=== PATIENT | male | born 1955 | race African-American/Black ===

== ENCOUNTER 2019-04-12 08:48 | Emergency (ER) | payer OTHER ==
--- NOTE | 2019-04-12 09:40 | ER ---
Nurse's Notes [facility] Name: Mainor Bell Age: 63 yrs Sex: Male : 1955 Arrival Date: 04/12/2019 Time: 08:53 Bed 20 Private MD: Diagnosis: Abscess of external ear-lobe;Type 2 diabetes mellitus Presentation: 04/12 09:01 Presenting complaint: Patient states: pain and swelling to lobe of L ear that began two ss weeks ago. Transition of care: patient was not received from another setting of care. Onset of symptoms was March 2019. Risk Assessment: Do you want to hurt yourself or someone else? Patient reports no desire to harm self or others. Initial Sepsis Screen: Does the patient meet any 2 criteria? No. Patient's initial sepsis screen is negative. Does the patient have a suspected source of infection? No. Patient's initial sepsis screen is negative. Care prior to arrival: None. 09:01 Method Of Arrival: Ambulatory ss 09:01 Acuity: JO 5 ss Historical: - Allergies: 09:01 No Known Allergies; ss - PMHx: 09:57 Diabetes - NIDDM; jl7 - Immunization history:: Adult Immunizations up to date. - Social history:: Smoking status: Patient uses tobacco products, smokes one-half pack cigarettes per day. - Ebola Screening: : Patient denies exposure to infectious person Patient denies travel to an Ebola-affected area in the 21 days before illness onset. - Family history:: not pertinent. Screenin:02 Abuse screen: Denies threats or abuse. Denies injuries from another. Nutritional ss screening: No deficits noted. Tuberculosis screening: Never had TB. Fall Risk None identified. Assessment: 09:02 General: Appears in no apparent distress. comfortable, Behavior is calm, cooperative. ss Pain: Complains of pain in left ear lobe Pain currently is 7 out of 10 on a pain scale. Quality of pain is described as tender, Pain began 2 weeks ago Is continuous. Neuro: Level of Consciousness is awake, alert, obeys commands, Oriented to person, place, time, situation. Cardiovascular: Capillary refill < 3 seconds is brisk in bilateral fingers. Respiratory: Airway is patent Respiratory effort is even, unlabored, Respiratory pattern is regular, symmetrical. GI: No signs and/or symptoms were reported involving the gastrointestinal system. EENT: Nares are clear Throat is clear. Derm: Skin is pink, warm \T\ dry. normal. Musculoskeletal: Range of motion: intact in all extremities, Swelling mild swelling and redness noted to lobe of L ear. Vital Signs: 08:59 BP 190 / 89; Pulse 81; Resp 16; Temp 97.4(O); Pulse Ox 99% on R/A; Weight 116.57 kg; Height 6 ft. 5 in. (195.58 cm); Pain 7/10; 09:57 BP 167 / 83; Pulse 77; Resp 16 S; Pulse Ox 98% on R/A; jl7 08:59 Body Mass Index 30.48 (116.57 kg, 195.58 cm) ED Course: 08:53 Patient arrived in ED. mr 08:55 Daren Palma MD is Attending Physician. [facility] 09:01 Arm band placed on left wrist. 09:02 Triage completed. 09:02 Patient has correct armband on for positive identification. Bed in low position. Call light in reach. 09:18 Bryan Sims RN is Primary Nurse. jl7 09:39 Sandee Sneed MD is Referral Physician. [facility] 09:56 No provider procedures requiring assistance completed. Patient did not have IV access jl7 during this emergency room visit. Administered Medications: 09:50 Drug: Doxycycline 200 mg Route: PO; jl7 09:58 Follow up: Response: Medication administered at discharge. jl7 09:50 Drug: Bactrim (160 mg-800 mg (DS) 1 tablet Route: PO; jl7 09:58 Follow up: Response: Medication administered at discharge. jl7 09:57 Drug: Bactroban Ointment 2 % 1 application Route: Topical; Site: wound; jl7 09:58 Follow up: Response: Medication administered at discharge. jl7 Outcome: 09:40 Discharge ordered by . shawn 09:56 Discharged to home ambulatory. jl7 09:56 Condition: stable 09:56 Discharge instructions given to patient, Instructed on discharge instructions, follow up and referral plans. medication usage, Demonstrated understanding of instructions, follow-up care, medications, Prescriptions given X 4. 09:59 Patient left the ED. jl7 Signatures: Daren Palma MD MD cha Rivera, Mary mr Smirch, Shelby, RN RN Bryan Sims RN RN jl7
--- NOTE | 2019-04-12 09:40 | EDPHYS ---
Physician Documentation [facility] Name: Mainor Bell Age: 63 yrs Sex: Male : 1955 Arrival Date: 04/12/2019 Time: 08:53 Bed 20 Private MD: REMI Physician Daren Palma HPI: 04/12 09:35 This 63 yrs old Black Male presents to ER via Ambulatory with complaints of Ear Pain. shawn 09:35 The patient presents with swelling, tenderness. The complaints affect the left ear. shawn Onset: The symptoms/episode began/occurred 3 day(s) ago. Modifying factors: The symptoms are alleviated by nothing, the symptoms are aggravated by nothing. Associated signs and symptoms: The patient has no apparent associated signs or symptoms. Historical: - Allergies: 09:01 No Known Allergies; ss - PMHx: 09:57 Diabetes - NIDDM; jl7 - Immunization history:: Adult Immunizations up to date. - Social history:: Smoking status: Patient uses tobacco products, smokes one-half pack cigarettes per day. - Ebola Screening: : Patient denies exposure to infectious person Patient denies travel to an Ebola-affected area in the 21 days before illness onset. - Family history:: not pertinent. ROS: 09:35 Constitutional: Negative for fever, chills, and weight loss, Eyes: Negative for injury, shawn pain, redness, and discharge, Neck: Negative for injury, pain, and swelling, Cardiovascular: Negative for chest pain, palpitations, and edema, Respiratory: Negative for shortness of breath, cough, wheezing, and pleuritic chest pain, Abdomen/GI: Negative for abdominal pain, nausea, vomiting, diarrhea, and constipation, Back: Negative for injury and pain, : Negative for injury, bleeding, discharge, and swelling, MS/Extremity: Negative for injury and deformity, Skin: Negative for injury, rash, and discoloration, Neuro: Negative for headache, weakness, numbness, tingling, and seizure, Psych: Negative for depression, anxiety, suicide ideation, homicidal ideation, and hallucinations, Allergy/Immunology: Negative for hives, rash, and allergies, Endocrine: Negative for neck swelling, polydipsia, polyuria, polyphagia, and marked weight changes, Hematologic/Lymphatic: Negative for swollen nodes, abnormal bleeding, and unusual bruising. 09:35 ENT: Positive for ear pain. Exam: 09:35 Constitutional: This is a well developed, well nourished patient who is awake, alert, shawn and in no acute distress. Head/Face: Normocephalic, atraumatic. Eyes: Pupils equal round and reactive to light, extra-ocular motions intact. Lids and lashes normal. Conjunctiva and sclera are non-icteric and not injected. Cornea within normal limits. Periorbital areas with no swelling, redness, or edema. Neck: Trachea midline, no thyromegaly or masses palpated, and no cervical lymphadenopathy. Supple, full range of motion without nuchal rigidity, or vertebral point tenderness. No Meningismus. Chest/axilla: Normal chest wall appearance and motion. Nontender with no deformity. No lesions are appreciated. Cardiovascular: Regular rate and rhythm with a normal S1 and S2. No gallops, murmurs, or rubs. Normal PMI, no JVD. No pulse deficits. Respiratory: Lungs have equal breath sounds bilaterally, clear to auscultation and percussion. No rales, rhonchi or wheezes noted. No increased work of breathing, no retractions or nasal flaring. Abdomen/GI: Soft, non-tender, with normal bowel sounds. No distension or tympany. No guarding or rebound. No evidence of tenderness throughout. Back: No spinal tenderness. No costovertebral tenderness. Full range of motion. MS/ Extremity: Pulses equal, no cyanosis. Neurovascular intact. Full, normal range of motion. Neuro: Awake and alert, GCS 15, oriented to person, place, time, and situation. Cranial nerves II-XII grossly intact. Motor strength 5/5 in all extremities. Sensory grossly intact. Cerebellar exam normal. Normal gait. Psych: Awake, alert, with orientation to person, place and time. Behavior, mood, and affect are within normal limits. 09:35 ENT: External ear(s): abscess, that is small, cellulitis. Vital Signs: 08:59 BP 190 / 89; Pulse 81; Resp 16; Temp 97.4(O); Pulse Ox 99% on R/A; Weight 116.57 kg; ss Height 6 ft. 5 in. (195.58 cm); Pain 7/10; 09:57 BP 167 / 83; Pulse 77; Resp 16 S; Pulse Ox 98% on R/A; jl 08:59 Body Mass Index 30.48 (116.57 kg, 195.58 cm) ss MDM: 08:55 Patient medically screened. [facility] 09:35 Data reviewed: vital signs, nurses notes, lab test result(s). [facility] 04/12 09:44 Order name: GUILLERMINA barahona 04/12 09:35 Order name: Blood Glucose Level; Complete Time: 09:42 [facility] Administered Medications: 09:50 Drug: Doxycycline 200 mg Route: PO; [facility] 09:58 Follow up: Response: Medication administered at discharge. 09:50 Drug: Bactrim (160 mg-800 mg (DS) 1 tablet Route: PO; 09:58 Follow up: Response: Medication administered at discharge. 09:57 Drug: Bactroban Ointment 2 % 1 application Route: Topical; Site: wound; 09:58 Follow up: Response: Medication administered at discharge. 7 Disposition: 04/12/19 09:40 Discharged to Home. Impression: Abscess of external ear - lobe, Type 2 diabetes mellitus. - Condition is Stable. - Discharge Instructions: Skin Abscess, Type 2 Diabetes Mellitus, Diagnosis, Adult, Skin Abscess, [id number], Type 2 Diabetes Mellitus, Diagnosis, Adult, [id number]. - Prescriptions for Bactroban 2 % Topical Ointment - Apply to affected area 1 application by TOPICAL route every 12 hours; 30 gram. Tylenol- Codeine #3 300-30 mg Oral Tablet - take 2 tablets by ORAL route every 6 hours As needed; 20 tablet. Doxycycline Hyclate 100 mg Oral Tablet - take 1 tablet by ORAL route every 12 hours; 20 tablet. Bactrim DS 800- 160 mg Oral Tablet - take 1 tablet by ORAL route every 12 hours for 10 days; 20 tablet. - Medication Reconciliation Form, Thank You Letter, Antibiotic Education, Prescription Opioid Use form. - Follow up: Private Physician; When: 2 - 3 days; Reason: Recheck today's complaints, Continuance of care, Re-evaluation by your physician. Follow up: Sandee Sneed MD; When: 2 - 3 days; Reason: Recheck today's complaints, Continuance of care, Re-evaluation by your physician. - Problem is new. - Symptoms have improved. Signatures: Dispatcher [employer] Daren Sarmiento MD MD cha Smirch, Carolin, RN RN ss Bryan Sims RN RN jl7 Corrections: (The following items were deleted from the chart) 09:59 09:40 04/12/2019 09:40 Discharged to Home. Impression: Abscess of external ear - lobe; jl7 Type 2 diabetes mellitus. Condition is Stable. Forms are Medication Reconciliation Form, Thank You Letter, Antibiotic Education, Prescription Opioid Use. Follow up: Private Physician; When: 2 - 3 days; Reason: Recheck today's complaints, Continuance of care, Re-evaluation by your physician. Follow up: Sandee Sneed; When: 2 - 3 days; Reason: Recheck today's complaints, Continuance of care, Re-evaluation by your physician. Problem is new. Symptoms have improved. shawn
[2019-04-12] MEDS ORDERED: SMZ./TMP. 800/160 MG TABLET ONE (09:43)
[2019-04-12] MEDS ORDERED: DOXYCYCLINE 100 MG CAP PO ONE (09:44)
[2019-04-12] MEDS ORDERED: MUPIROCIN 2% OINT 22GM TUBE TOP ONE (09:44)
[2019-04-12 10:03] VITALS: TEMP 97.4
[2019-04-12 10:04] VITALS: BP 167/83; O2SAT 98
== END 2019-04-12 09:59 | disposition home or self-care (01) ==
LOC: ER 08:48
DX: H60.02 Abscess of left external ear (principal); E11.9 Type 2 diabetes mellitus without complications; F17.210 Nicotine dependence, cigarettes, uncomplicated
CPT/HCPCS: 36415; 82962; 99283

== ENCOUNTER 2019-05-11 07:12 | Emergency (ER) | payer OTHER ==
[2019-05-11] MEDS ORDERED: LIDOCAINE 1% MPF 5 ML VIAL ONE (07:30)
--- NOTE | 2019-05-11 07:54 | EDPHYS ---
Physician Documentation [facility] Name: Mainor Bell Age: 64 yrs Sex: Male : 1955 Arrival Date: 05/11/2019 Time: 07:15 Bed 13 Private MD: ED Physician Conrado Garcia HPI: 05/11 07:24 This 64 yrs old Black Male presents to ER via Unassigned with complaints of Abscess. rn 07:24 The patient presents with an abscess of the right groin. Description: The affected area rn is small, localized, erythematous, fluctuant. Onset: The symptoms/episode began/occurred 2 day(s) ago. Possible cause(s): unknown. Modifying factors: the symptoms are alleviated by nothing, the symptoms are aggravated by walking, touching. Severity of symptoms: At their worst the symptoms were mild, in the emergency department the symptoms are unchanged. The patient has experienced similar episodes in the past. Reports chronic skin infections, no fever, reports had abx for other abscess a few weeks ago, bumps popped up in right groin, has required multiple incision and drainage in past. Reports pain with walking and touching area. No trauma. . Historical: - Allergies: 07:25 No Known Allergies; hb - PMHx: 07:25 Diabetes - NIDDM; hb - Immunization history:: Adult Immunizations up to date. - Social history:: Smoking status: Patient uses tobacco products, denies chronic smoking, but will smoke occasionally. - Ebola Screening: : No symptoms or risks identified at this time. - Family history:: not pertinent. - Hospitalizations: : No recent hospitalization is reported. ROS: 07:24 Constitutional: Negative for fever, chills, and weight loss, MS/Extremity: Negative for rn injury and deformity, Skin: + swollen area right groin Exam: 07:24 Constitutional: This is a well developed, well nourished patient who is awake, alert, rn and in no acute distress. Ambulatory to room without assistance. Skin: warm, dry, right groin with multiple subcentimeter pustules, and a single larger approx 2cm diameter area of fluctuance and tenderness. No lesions on penis or scrotum. Vital Signs: 07:25 BP 194 / 90; Pulse 84; Resp 16; Temp 97.4; Pulse Ox 100% ; Weight 115.67 kg; Height 6 hb ft. 5 in. (195.58 cm); Pain 10/10; 08:20 BP 176 / 87; Pulse 89; Resp 16; Temp 97.5; Pulse Ox 100% ; bp 07:25 Body Mass Index 30.24 (115.67 kg, 195.58 cm) hb Procedures: 07:51 I \T\ D: Incision and drainage was performed for an abscess of the right groin Prepped rn with Betadine, Anesthetized with 3 ml's 1% Lidocaine. Incised with #11 blade. Drained small amount purulent fluid. serosanguinous fluid. Dressing: sterile 4x4 gauze, the patient tolerated the procedure well, Cut 2 small abscesses, small amount of purulence, fluctuance gone, improved pain, too small to pack. . MDM: 07:20 Patient medically screened. rn 07:51 Differential diagnosis: abscess, hidradenitis suppurativa . Data reviewed: vital signs, rn nurses notes, and as a result, I will discharge patient. Counseling: I had a detailed discussion with the patient and/or guardian regarding: the historical points, exam findings, and any diagnostic results supporting the discharge/admit diagnosis, the need for outpatient follow up, to return to the emergency department if symptoms worsen or persist or if there are any questions or concerns that arise at home. Response to treatment: the patient's symptoms have mildly improved after treatment, and as a result, I will discharge patient. Special discussion: I discussed with the patient/guardian in detail that at this point there is no indication for admission to the hospital. It is understood, however, that if the symptoms persist or worsen the patient needs to return immediately for re-evaluation. 05/11 07:24 Order name: Incision \T\ Drainage Setup; Complete Time: 07:33 rn Administered Medications: 07:33 Drug: Lidocaine (1 %) 1 vials {Note: AT B/S FOR MD.} Volume: 5 ml; Route: Infiltration; bp 07:55 Drug: [place] 5 mg-325 mg 1 tabs Route: PO; bp 08:22 Follow up: Response: Pain is decreased bp Disposition: 05/11/19 07:53 Discharged to Home. Impression: Cutaneous abscess of groin, Hidradenitis suppurativa. - Condition is Stable. - Discharge Instructions: Skin Abscess, Hidradenitis Suppurativa, Incision and Drainage, Percutaneous Abscess Drain, Care After. - Prescriptions for Clindamycin HCl 300 mg Oral Capsule - take 1 capsule by ORAL route every 6 hours for 10 days; 40 capsule. Tylenol- Codeine #3 300-30 mg Oral Tablet - take 1 tablet by ORAL route every 6 hours As needed; 20 tablet. - Medication Reconciliation Form, Thank You Letter, Antibiotic Education, Prescription Opioid Use form. - Follow up: Private Physician; When: As needed; Reason: Recheck today's complaints, Re-evaluation by your physician. - Problem is new. - Symptoms have improved. Signatures: Conrado Garcia MD MD rn Baxter, Heather, RN RN hb Peltier, Brian, RN RN bp Corrections: (The following items were deleted from the chart) 08:22 07:53 05/11/2019 07:53 Discharged to Home. Impression: Cutaneous abscess of groin; bp Hidradenitis suppurativa. Condition is Stable. Forms are Medication Reconciliation Form, Thank You Letter, Antibiotic Education, Prescription Opioid Use. Follow up: Private Physician; When: As needed; Reason: Recheck today's complaints, Re-evaluation by your physician. Problem is new. Symptoms have improved. rn
--- NOTE | 2019-05-11 07:54 | ER ---
Nurse's Notes [facility] Name: Mainor Bell Age: 64 yrs Sex: Male : 1955 Arrival Date: 05/11/2019 Time: 07:15 Bed 13 Private MD: Diagnosis: Cutaneous abscess of groin;Hidradenitis suppurativa Presentation: 05/11 07:25 Presenting complaint: Right groin abscess x 2 days. Transition of care: patient was not hb received from another setting of care. Onset of symptoms was May 10, 2019. Risk Assessment: Do you want to hurt yourself or someone else? Patient reports no desire to harm self or others. Initial Sepsis Screen: Does the patient meet any 2 criteria? No. Patient's initial sepsis screen is negative. Does the patient have a suspected source of infection? No. Patient's initial sepsis screen is negative. Care prior to arrival: None. 07:25 Method Of Arrival: Ambulatory hb 07:25 Acuity: JO 4 hb Triage Assessment: 07:25 General: Appears in no apparent distress. uncomfortable, Behavior is cooperative, bp appropriate for age, anxious. Pain: Complains of pain in pelvis. EENT: No deficits noted. Neuro: No deficits noted. Cardiovascular: No deficits noted. Respiratory: No deficits noted. GI: No signs and/or symptoms were reported involving the gastrointestinal system. : No signs and/or symptoms were reported regarding the genitourinary system. Derm: Abscess located on pelvis. Musculoskeletal: No deficits noted. Historical: - Allergies: 07:25 No Known Allergies; hb - PMHx: 07:25 Diabetes - NIDDM; hb - Immunization history:: Adult Immunizations up to date. - Social history:: Smoking status: Patient uses tobacco products, denies chronic smoking, but will smoke occasionally. - Ebola Screening: : No symptoms or risks identified at this time. - Family history:: not pertinent. - Hospitalizations: : No recent hospitalization is reported. Screenin:42 Abuse screen: Denies threats or abuse. Denies injuries from another. Nutritional bp screening: No deficits noted. Tuberculosis screening: No symptoms or risk factors identified. Fall Risk None identified. Assessment: 07:30 General: Appears in no apparent distress. uncomfortable, Behavior is cooperative, bp appropriate for age, anxious. 07:30 Pain: Complains of pain in pelvis. Neuro: No deficits noted. Cardiovascular: No bp deficits noted. Respiratory: No deficits noted. GI: No signs and/or symptoms were reported involving the gastrointestinal system. : No signs and/or symptoms were reported regarding the genitourinary system. EENT: No deficits noted. Derm: Abscess located on pelvis. Musculoskeletal: No deficits noted. 08:20 Reassessment: PT D/C HOME AMBULATORY WITH FAMILY, DX WITH CUTANEOUS ABSCESS. bp Vital Signs: 07:25 BP 194 / 90; Pulse 84; Resp 16; Temp 97.4; Pulse Ox 100% ; Weight 115.67 kg; Height 6 hb ft. 5 in. (195.58 cm); Pain 10/10; 08:20 BP 176 / 87; Pulse 89; Resp 16; Temp 97.5; Pulse Ox 100% ; bp 07:25 Body Mass Index 30.24 (115.67 kg, 195.58 cm) hb ED Course: 07:15 Patient arrived in ED. as 07:20 Ra Jackson RN is Primary Nurse. la1 07:20 Conrado Garcia MD is Attending Physician. rn 07:26 Triage completed. hb 07:27 Arm band placed on. hb 07:42 Patient has correct armband on for positive identification. Placed in gown. Bed in low bp position. Call light in reach. Side rails up X2. 07:54 Assist provider with I \T\ D: of an abscess on right perineal Set up I\T\D tray. Performed bp by Conrado Garcia MD Dressing with 4X4s, Patient tolerated well. Patient did not have IV access during this emergency room visit. Administered Medications: 07:33 Drug: Lidocaine (1 %) 1 vials {Note: AT B/S FOR MD.} Volume: 5 ml; Route: Infiltration; bp 07:55 Drug: [place] 5 mg-325 mg 1 tabs Route: PO; bp 08:22 Follow up: Response: Pain is decreased bp Outcome: 07:53 Discharge ordered by . rn 08:21 Discharged to home ambulatory, with family. bp 08:21 Condition: stable 08:21 Discharge instructions given to patient, Instructed on discharge instructions, follow up and referral plans. medication usage, Demonstrated understanding of instructions, follow-up care, medications, wound care, Prescriptions given X 2. 08:22 Patient left the ED. bp Signatures: Kimberley Dailey Roman, MD MD rn Attema, Lee, RN RN la1 Milly Falcon, RN RN hb Marshal Mccollum, RN RN bp
[2019-05-11] MEDS ORDERED: HYDROCODONE/APAP 5/325 MG TAB ONE (08:02)
[2019-05-11 08:41] VITALS: O2SAT 100
[2019-05-11 08:43] VITALS: BP 176/87; TEMP 97.5
== END 2019-05-11 08:22 | disposition home or self-care (01) ==
LOC: ER 07:12
PROC: 0J9B0ZZ Drainage of Perineum Subcutaneous Tissue and Fascia, Open Approach (ICD-10-PCS; principal; 2019-05-11)
DX: L02.214 Cutaneous abscess of groin (principal); L73.2 Hidradenitis suppurativa
CPT/HCPCS: 99283

== ENCOUNTER 2019-09-01 10:30 | Emergency (ER) | payer OTHER ==
--- NOTE | 2019-09-01 14:42 | EDPHYS ---
Physician Documentation [facility] Name: Mainor Bell Age: 64 yrs Sex: Male : 1955 Arrival Date: 09/01/2019 Time: 10:32 Bed 19 Private MD: ED Physician Conrado Garcia HPI: 09/01 10:47 This 64 yrs old Black Male presents to ER via Ambulatory with complaints of Wound Check.[facility] 10:47 Patient presents to ED for recheck of: abscess. The affected area is on the pelvis. The [facility] patient has experienced similar episodes in the past. This is a 64 year old male with a history of dm, htn that presents to the ED with complaints of a wound vac malfuntion. Patient is 2 days s/p incision and drainage. Advised by surgery to go to the ED if the wound vac indicates malfunction. Patient went to [facility] today and was told they could not help him today. Patient is currently taking doxycycline. . Historical: - Allergies: 10:55 No Known Allergies; iw - Home Meds: 10:55 Lisinopril Oral [Active]; amlodipine oral [Active]; Levemir 100 unit/mL subcutaneous iw soln [Active]; Novolog 100 unit/mL Sub-Q soln [Active]; - PMHx: 10:55 Diabetes - NIDDM; Hypertension; iw - PSHx: 10:55 I \T\ D; iw - Immunization history:: Adult Immunizations up to date. - Coronavirus screen:: The patient has NOT traveled to [place] in the past 14 days. The patient has NOT had contact with known/suspected case of Coronavirus?. - Social history:: Smoking status: Patient/guardian denies using. - Ebola Screening: : Patient negative for fever greater than or equal to 101.5 degrees Fahrenheit, and additional compatible Ebola Virus Disease symptoms. ROS: 10:47 Constitutional: Negative for fever, chills, and weight loss, Cardiovascular: Negative [facility] for chest pain, palpitations, and edema, Respiratory: Negative for shortness of breath, cough, wheezing, and pleuritic chest pain. 10:47 Skin: Positive for wound. 10:47 All other systems are negative. Exam: 10:47 Head/Face: atraumatic. Eyes: EOMI, no conjunctival erythema appreciated ENT: Moist jmm Mucus Membranes Neck: Trachea midline, Supple Chest/axilla: Normal chest wall appearance and motion. Cardiovascular: Regular rate and rhythm. No edema appreciated Respiratory: Normal respirations, no respiratory distress appreciated Abdomen/GI: Non distended, soft Back: Normal ROM 10:47 Constitutional: The patient appears alert, awake, anxious. 10:47 Skin: wound attached to a draining incision at the right groin. seal appears broken inferior to the tubing attachment site. . 10:47 Neuro: Orientation: is normal, Mentation: is normal, Memory: is normal. 10:47 Psych: Behavior/mood is pleasant, cooperative. Vital Signs: 10:42 BP 169 / 82; Pulse 77; Resp 19; Pulse Ox 98% ; Pain 5/10; rb1 11:40 BP 158 / 66; Pulse 68; Resp 19; Temp 97.9(O); Pulse Ox 98% on R/A; rb1 12:38 BP 159 / 72; Pulse 66; Resp 18; Pulse Ox 98% on R/A; rb1 13:40 BP 160 / 70; Pulse 66; Resp 19; Pulse Ox 99% on R/A; rb1 14:35 BP 162 / 76; Pulse 65; Resp 18; Pulse Ox 95% on R/A; rb1 15:35 BP 157 / 70; Pulse 64; Resp 19; Pulse Ox 96% ; rb1 MDM: 10:47 Patient medically screened. [facility] 11:46 Data reviewed: vital signs, nurses notes. Counseling: I had a detailed discussion with meño the patient and/or guardian regarding: the historical points, exam findings, and any diagnostic results supporting the discharge/admit diagnosis, the need for outpatient follow up, to return to the emergency department if symptoms worsen or persist or if there are any questions or concerns that arise at home. ED course: Tegaderm was applied by RN to seal wound vac. Wound vac still appears malfunctional. Patient is advised to follow up with wound care and otherwise given wound infection return precaution. . Administered Medications: No medications were administered Disposition: 17:53 Co-signature as Attending Physician, Conrado Garcia MD. rn Disposition: 09/01/19 14:41 Discharged to Home. Impression: Encounter for change or removal of surgical wound dressing. - Condition is Stable. - Medication Reconciliation Form, Thank You Letter, Antibiotic Education, Prescription Opioid Use form. - Follow up: Private Physician; When: 2 - 3 days; Reason: Recheck today's complaints, Continuance of care, Re-evaluation by your physician. - Notes: Please follow up with wound care center. [address] [phone] Signatures: James Deleon PA PA jmm Williams, Irene, FADY RN iw Conrado Garcia MD MD rn Wilma Saba RN RN rb1 Corrections: (The following items were deleted from the chart) 16:19 14:41 09/01/2019 14:41 Discharged to Home. Impression: Encounter for change or removal rb1 of surgical wound dressing. Condition is Stable. Forms are Medication Reconciliation Form, Thank You Letter, Antibiotic Education, Prescription Opioid Use. Follow up: Private Physician; When: 2 - 3 days; Reason: Recheck today's complaints, Continuance of care, Re-evaluation by your physician. saadia
--- NOTE | 2019-09-01 14:42 | ER ---
Nurse's Notes [facility] Name: Mainor Bell Age: 64 yrs Sex: Male : 1955 Arrival Date: 09/01/2019 Time: 10:32 Bed 19 Private MD: Diagnosis: Encounter for change or removal of surgical wound dressing Presentation: 09/01 10:52 Presenting complaint: Patient states: had surgery on abscess to right groin at [facility] on iw , was sent home with a wound vac, it started beeping today and his wound started bleeding. Transition of care: patient was not received from another setting of care. Onset of symptoms was September 01, 2019. Risk Assessment: Do you want to hurt yourself or someone else? Patient reports no desire to harm self or others. Initial Sepsis Screen: Does the patient meet any 2 criteria? No. Patient's initial sepsis screen is negative. Does the patient have a suspected source of infection? No. Patient's initial sepsis screen is negative. Care prior to arrival: None. 10:52 Method Of Arrival: Ambulatory iw 10:52 Acuity: JO 3 iw Historical: - Allergies: 10:55 No Known Allergies; iw - Home Meds: 10:55 Lisinopril Oral [Active]; amlodipine oral [Active]; Levemir 100 unit/mL subcutaneous iw soln [Active]; Novolog 100 unit/mL Sub-Q soln [Active]; - PMHx: 10:55 Diabetes - NIDDM; Hypertension; iw - PSHx: 10:55 I \T\ D; iw - Immunization history:: Adult Immunizations up to date. - Coronavirus screen:: The patient has NOT traveled to [place] in the past 14 days. The patient has NOT had contact with known/suspected case of Coronavirus?. - Social history:: Smoking status: Patient/guardian denies using. - Ebola Screening: : Patient negative for fever greater than or equal to 101.5 degrees Fahrenheit, and additional compatible Ebola Virus Disease symptoms. Screenin:43 Abuse screen: Denies threats or abuse. Nutritional screening: No deficits noted. rb1 Tuberculosis screening: No symptoms or risk factors identified. Fall Risk None identified. Assessment: 10:43 General: Appears in no apparent distress. comfortable, Behavior is calm, cooperative, rb1 Denies fever. Pain: Complains of pain in right groin Pain currently is 5 out of 10 on a pain scale. Pain began Had an abscess drained on per pt. report. Neuro: Level of Consciousness is awake, alert, obeys commands, Oriented to person, place, time, situation. Cardiovascular: Capillary refill < 3 seconds is brisk in bilateral fingers. Respiratory: Airway is patent Respiratory effort is even, unlabored, Respiratory pattern is regular, symmetrical. GI: No signs and/or symptoms were reported involving the gastrointestinal system. : No signs and/or symptoms were reported regarding the genitourinary system. Derm: Wound noted right groin Wound is wound vac is in place. Musculoskeletal: Range of motion: intact in all extremities. 11:10 Reassessment: Applied additional Tegaderm to the wound site to create a better seal. rb1 Pt. tolerated well. The wound vac canister is not beeping now. 12:00 Reassessment: Patient appears in no apparent distress at this time. Patient and/or rb1 family updated on plan of care and expected duration. Pain level reassessed. Patient is alert, oriented x 3, equal unlabored respirations, skin warm/dry/pink. 13:00 Reassessment: Patient appears in no apparent distress at this time. No changes from rb1 previously documented assessment. 14:00 Reassessment: Patient appears in no apparent distress at this time. Patient and/or rb1 family updated on plan of care and expected duration. Pain level reassessed. Patient is alert, oriented x 3, equal unlabored respirations, skin warm/dry/pink. Pt. ambulated to the restroom without difficulty. 14:06 Reassessment: I was informed by the provider that FADY Weiss will be changing the pt. rb1 wound vac in the right groin. 14:45 Reassessment: Discharge pending to awaiting for the wound vac to be changed on the pt. rb1 right groin. 15:00 Reassessment: Patient appears in no apparent distress at this time. No changes from rb1 previously documented assessment. FADY Weiss is unable to change the wound vac at this time. 16:00 Reassessment: Discharge pending due to [facility] per rb1 provider's report. 16:11 Reassessment: Pt. is frustrated because the wound vac has not been changed. He is ready rb1 to go home. Vital Signs: 10:42 BP 169 / 82; Pulse 77; Resp 19; Pulse Ox 98% ; Pain 5/10; rb1 11:40 BP 158 / 66; Pulse 68; Resp 19; Temp 97.9(O); Pulse Ox 98% on R/A; rb1 12:38 BP 159 / 72; Pulse 66; Resp 18; Pulse Ox 98% on R/A; rb1 13:40 BP 160 / 70; Pulse 66; Resp 19; Pulse Ox 99% on R/A; rb1 14:35 BP 162 / 76; Pulse 65; Resp 18; Pulse Ox 95% on R/A; rb1 15:35 BP 157 / 70; Pulse 64; Resp 19; Pulse Ox 96% ; rb1 ED Course: 10:32 Patient arrived in ED. as 10:36 Wilma Saba, RN is Primary Nurse. rb1 10:42 James Deleon PA is PHCP. [facility] 10:42 Conrado Garcia MD is Attending Physician. [facility] 10:43 Patient has correct armband on for positive identification. Bed in low position. Call rb1 light in reach. Side rails up X 1. Pulse ox on. NIBP on. 10:53 Triage completed. iw 10:55 Arm band placed on. iw 16:19 No provider procedures requiring assistance completed. Patient did not have IV access rb1 during this emergency room visit. Administered Medications: No medications were administered Outcome: 14:41 Discharge ordered by . [facility] 16:19 Patient left the ED. rb1 16:19 Discharged to home ambulatory. rb1 16:19 Condition: stable 16:19 Discharge instructions given to patient, Instructed on discharge instructions, follow up and referral plans. Demonstrated understanding of instructions, follow-up care, Prescriptions given X none Signatures: James Deleon PA PA jmm Martinez, Amelia as Williams, Irene, RN RN iw Wilma Saba, FADY RN [facility]
[2019-09-01 16:43] VITALS: TEMP 97.9
[2019-09-01 16:48] VITALS: BP 162/76; O2SAT 95
== END 2019-09-01 16:19 | disposition home or self-care (01) ==
LOC: ER 10:30
DX: Z48.01 Encounter for change or removal of surgical wound dressing (principal); E11.9 Type 2 diabetes mellitus without complications; I10 Essential (primary) hypertension
CPT/HCPCS: 99283

== ENCOUNTER 2019-09-09 22:30 | Emergency (ER) | payer OTHER ==
[2019-09-09] MEDS ORDERED: LIDOCAINE 1% W/EPI 1:100,000 MDV 20 ML VIAL ONE (22:48)
[2019-09-09 23:48] LABS: Absolute Lymphocytes (CBC) 1.9 K/uL (0.7-4.9); Basophils % 0.5 % (0-1.3); Lymphocytes % 25.7 % (15.3-44.8); MPV 7.1 fL (7.6-11.3); RBC Red Blood Cell Count 4.77 M/uL (4.33-5.43)
[2019-09-09 23:51] LABS: BUN Blood Urea Nitrogen 14 mg/dL (7-18); Bicarbonate 28 mmol/L (21-32); Glucose Level 170 mg/dL (74-106); Sodium Level 136 mmol/L (136-145)
--- NOTE | 2019-09-10 00:07 | ER ---
Nurse's Notes [facility] Name: Mainor Bell Age: 64 yrs Sex: Male : 1955 Arrival Date: 09/09/2019 Time: 22:31 Bed 2 Private MD: Diagnosis: Encounter for Arteriole bleed of open surgical wound Presentation: 09/08 22:46 Chief complaint: Patient states: HAD A GROIN SURGERY DONE IN [place] AUGUST 30, 2019 AND rv THE SURGICAL WOUND STARTED TO BLEED THIRTY MINUTES AGO. DENIES DIZZINESS OR WEAKNESS. Coronavirus screen: The patient has NOT traveled to [place] in the past 14 days. Proceed with normal triage procedures. The patient has NOT had contact with known and/or suspected case of Coronavirus. Proceed with normal triage procedures. Ebola Screen: No symptoms or risks identified at this time. Initial Sepsis Screen: Does the patient meet any 2 criteria? No. Patient's initial sepsis screen is negative. Does the patient have a suspected source of infection? No. Patient's initial sepsis screen is negative. Risk Assessment: Do you want to hurt yourself or someone else? Patient reports no desire to harm self or others. 22:46 Method Of Arrival: Ambulatory rv 22:46 Acuity: JO 2 rv 22:52 Onset of symptoms was September 09, 2019 at 22:30. rv Historical: - Allergies: 22:49 No Known Allergies; rv - PMHx: 22:49 Diabetes - NIDDM; Hypertension; rv - PSHx: 22:49 GROIN SURGERY; rv - Immunization history:: Adult Immunizations up to date. - Social history:: Smoking status: Patient reports the use of cigarette tobacco products, 3 CIGS A DAY. Screenin:51 Abuse screen: Denies threats or abuse. Denies injuries from another. Nutritional rv screening: No deficits noted. Tuberculosis screening: No symptoms or risk factors identified. Fall Risk None identified. Assessment: 22:50 General: Appears in no apparent distress. comfortable, Behavior is calm, cooperative. rv Pain: Complains of pain in right femoral area. Neuro: Level of Consciousness is awake, alert, obeys commands, Oriented to person, place, time, situation. Cardiovascular: Patient's skin is warm and dry. Respiratory: Airway is patent. Derm: Wound noted right femoral area Wound is POST OP WOUND, BLEEDING MODERATELY. PAIN ON THE SURGICAL SITE. 09/09 00:19 Reassessment: Patient and/or family updated on plan of care and expected duration. Pain rv level reassessed. Patient is alert, oriented x 3, equal unlabored respirations, skin warm/dry/pink. ABD dressing placed on left inner thigh, secured with foam tape, pt tolerated well. Discharge instruction given to patient, verbalized the understanding of instruction. Pt left ED via wheelchair accompanied by . Vital Signs: 09/08 22:46 BP 202 / 98; Pulse 92; Resp 18; Temp 98.6; Pulse Ox 99% ; Weight 113.4 kg; Height 6 ft. rv 5 in. (195.58 cm); Pain 5/10; 23:28 BP 172 / 80; Pulse 82; Resp 18; Pulse Ox 100% on R/A; ea 09/09 00:15 BP 178 / 87; Pulse 90; Resp 18; Pulse Ox 99% on R/A; ea 09/08 22:46 Body Mass Index 29.65 (113.40 kg, 195.58 cm) rv ED Course: 09/08 22:31 Patient arrived in ED. cf2 22:46 Enio Huynh, FADY is Primary Nurse. rv 22:48 Triage completed. rv 22:49 Arm band placed on Patient placed in the treatment room, on a stretcher, Patient rv notified of wait time. 22:51 Patient has correct armband on for positive identification. Bed in low position. Call rv light in reach. Side rails up X 1. monitor technician on. Pulse ox on. NIBP on. 23:01 Phoenix Corral PA is PHCP. jr8 23:01 Tadeo Lopez MD is Attending Physician. jr8 23:15 Cautery of right inner thigh vessel, pt tolerated well. rv 23:21 Inserted saline lock: 20 gauge in right antecubital area, using aseptic technique. oe Blood collected. 09/09 00:25 IV discontinued, intact, bleeding controlled, No redness/swelling at site. Pressure rv dressing applied. Administered Medications: 09/08 23:04 Drug: Lidocaine-Epinephrine -1%: (1:100,000) 1 vials {Note: administered by provider.} rv Volume: 20 ml; Route: Infiltration; Outcome: 09/09 00:06 Discharge ordered by . jr8 00:25 Discharged to home via wheelchair, with significant other. rv 00:25 Condition: stable 00:25 Discharge instructions given to patient, Instructed on discharge instructions, follow up and referral plans. Demonstrated understanding of instructions, follow-up care. 00:27 Patient left the ED. ea Signatures: Phoenix Corral PA PA jr8 Kyaw Sotelo Elena RN RN ea Enio Huynh RN RN rv Olive Vogel cf2 Corrections: (The following items were deleted from the chart) 09/08 22:51 22:50 Derm: Wound noted right femoral area Wound is POST OP WOUND rv rv
--- NOTE | 2019-09-10 00:07 | EDPHYS ---
Physician Documentation [facility] Name: Mainor Bell Age: 64 yrs Sex: Male : 1955 Arrival Date: 09/09/2019 Time: 22:31 Bed 2 Private MD: ED Physician Tadeo Lopez HPI: 09/08 23:54 This 64 yrs old Black Male presents to ER via Ambulatory with complaints of BLEEDING jr8 WOUND. 23:54 Patient came to ED tonight for bleeding surgical wound to right inguinal region. Stated jr8 that he had Hydradenitis removal from that region at the [place]. 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 Stated that tonight started to have active bleeding from one of the open sites . Severity of symptoms: At their worst the symptoms were moderate in the emergency department the symptoms are unchanged. The patient has not experienced similar symptoms in the past. The patient has not recently seen a physician. Historical: - Allergies: 22:49 No Known Allergies; rv - PMHx: 22:49 Diabetes - NIDDM; Hypertension; rv - PSHx: 22:49 GROIN SURGERY; rv - Immunization history:: Adult Immunizations up to date. - Social history:: Smoking status: Patient reports the use of cigarette tobacco products, 3 CIGS A DAY. ROS: 23:54 Eyes: Negative for injury, pain, redness, and discharge, ENT: Negative for injury, jr8 pain, and discharge, Neck: Negative for injury, pain, and swelling, Cardiovascular: Negative for chest pain, palpitations, and edema, Respiratory: Negative for shortness of breath, cough, wheezing, and pleuritic chest pain, Abdomen/GI: Negative for abdominal pain, nausea, vomiting, diarrhea, and constipation, Back: Negative for injury and pain, MS/Extremity: Negative for injury and deformity, Neuro: Negative for headache, weakness, numbness, tingling, and seizure. 23:54 Skin: Positive for of the right inguinal region , open wounds. Exam: 23:54 Eyes: Pupils equal round and reactive to light, extra-ocular motions intact. Lids and jr8 lashes normal. Conjunctiva and sclera are non-icteric and not injected. Cornea within normal limits. Periorbital areas with no swelling, redness, or edema. ENT: Nares patent. No nasal discharge, no septal abnormalities noted. Tympanic membranes are normal and external auditory canals are clear. Oropharynx with no redness, swelling, or masses, exudates, or evidence of obstruction, uvula midline. Mucous membranes moist. Neck: Trachea midline, no thyromegaly or masses palpated, and no cervical lymphadenopathy. Supple, full range of motion without nuchal rigidity, or vertebral point tenderness. No Meningismus. Cardiovascular: Regular rate and rhythm with a normal S1 and S2. No gallops, murmurs, or rubs. Normal PMI, no JVD. No pulse deficits. Respiratory: Lungs have equal breath sounds bilaterally, clear to auscultation and percussion. No rales, rhonchi or wheezes noted. No increased work of breathing, no retractions or nasal flaring. Abdomen/GI: Soft, non-tender, with normal bowel sounds. No distension or tympany. No guarding or rebound. No evidence of tenderness throughout. Back: No spinal tenderness. No costovertebral tenderness. Full range of motion. MS/ Extremity: Pulses equal, no cyanosis. Neurovascular intact. Full, normal range of motion. Neuro: Awake and alert, GCS 15, oriented to person, place, time, and situation. Cranial nerves II-XII grossly intact. Motor strength 5/5 in all extremities. Sensory grossly intact. Cerebellar exam normal. Normal gait. 23:54 Skin: Patient has two surgical debridement wounds noted to right inguinal region. The largest being about 10 cm by 7.5 cm. This wound had active arteriole bleeding noted. Other surgical site unremarkable. Tissue to both of them healthy, pink, and without discharge or surrounding erythema . Vital Signs: 22:46 BP 202 / 98; Pulse 92; Resp 18; Temp 98.6; Pulse Ox 99% ; Weight 113.4 kg; Height 6 ft. rv 5 in. (195.58 cm); Pain 5/10; 23:28 BP 172 / 80; Pulse 82; Resp 18; Pulse Ox 100% on R/A; ea 09/09 00:15 BP 178 / 87; Pulse 90; Resp 18; Pulse Ox 99% on R/A; ea 09/08 22:46 Body Mass Index 29.65 (113.40 kg, 195.58 cm) rv Procedures: 09/08 23:54 Performed Cauterization of vessel . Bovie cautery utilized to ligate small arteriole. jr8 Was successful. No bleeding at this time . MDM: 23:01 Patient medically screened. jr8 09/09 00:03 Data reviewed: vital signs, nurses notes, lab test result(s), and as a result, I will jr8 discharge patient. Data interpreted: Pulse oximetry: on room air is 100 %. Interpretation: normal. Counseling: I had a detailed discussion with the patient and/or guardian regarding: the historical points, exam findings, and any diagnostic results supporting the discharge/admit diagnosis, lab results, the need for outpatient follow up, a general surgeon, to return to the emergency department if symptoms worsen or persist or if there are any questions or concerns that arise at home. Response to treatment: the patient's symptoms have resolved after treatment. ED course: Patient still doing well. No active bleeding at this time. Wounds repacked and dressed. Labs unremarkable. [facility] . 09/08 23:01 Order name: CBC with Diff; Complete Time: 23:54 jr8 09/08 23:01 Order name: Basic Metabolic Panel; Complete Time: 23:54 jr8 09/08 23:01 Order name: IV; Complete Time: 23:22 jr8 09/09 00:03 Order name: Wound dressing; Complete Time: 00:19 jr8 Administered Medications: 09/08 23:04 Drug: Lidocaine-Epinephrine -1%: (1:100,000) 1 vials {Note: administered by provider.} rv Volume: 20 ml; Route: Infiltration; Disposition: 09/09 01:05 Co-signature as Attending Physician, Tadeo Lopez MD. leila Disposition: 09/10/19 00:06 Discharged to Home. Impression: Encounter for Arteriole bleed of open surgical wound . - Condition is Stable. - Discharge Instructions: Wound Care. - Medication Reconciliation Form, Thank You Letter, Antibiotic Education, Prescription Opioid Use form. - Follow up: Private Physician; When: 1 - 2 days; Reason: Wound Recheck, Recheck today's complaints, Continuance of care, Re-evaluation by your physician. - Problem is new. - Symptoms have improved. Signatures: Dispatcher [employer] EDMS Tadeo Lopez MD MD pkPhoenix Bland PA PA jr8 Goer, Madeline, RN RN ea Lino, Enio, RN RN rv Corrections: (The following items were deleted from the chart) 00:27 00:06 09/10/2019 00:06 Discharged to Home. Impression: Encounter for Arteriole bleed of ea open surgical wound . Condition is Stable. Forms are Medication Reconciliation Form, Thank You Letter, Antibiotic Education, Prescription Opioid Use. Follow up: Private Physician; When: 1 - 2 days; Reason: Wound Recheck, Recheck today's complaints, Continuance of care, Re-evaluation by your physician. Problem is new. Symptoms have improved. jr8
[2019-09-10 01:05] VITALS: TEMP 98.6
[2019-09-10 01:08] VITALS: BP 178/87; O2SAT 99
== END 2019-09-10 00:27 | disposition home or self-care (01) ==
LOC: ER 22:30
PROC: 0Y3 Anatomical Regions, Lower Extremities, Control (ICD-10-PCS; principal; 2019-09-10)
DX: T81.89XA Other complications of procedures, not elsewhere classified, initial encounter (principal); S31.103A Unspecified open wound of abdominal wall, right lower quadrant without penetration into peritoneal cavity, initial encounter; X58.XXXA Exposure to other specified factors, initial encounter; F17.210 Nicotine dependence, cigarettes, uncomplicated
CPT/HCPCS: 36415; 80048; 85025; 99284

== ENCOUNTER 2020-01-20 01:30 | Emergency (ER) | payer OTHER ==
--- NOTE | 2020-01-20 03:36 | EDPHYS ---
Physician Documentation [facility] Name: Mainor Bell Age: 64 yrs Sex: Male : 1955 Arrival Date: 01/20/2020 Time: 01:32 Bed 3 Private MD: ED Physician Brooks Sanz HPI: 01/19 02:53 This 64 yrs old Black Male presents to ER via Ambulatory with complaints of Chest tw4 Tightness, Cough. 02:53 The patient or guardian reports cough. Onset: The symptoms/episode began/occurred tw4 today. Severity of symptoms: At their worst the symptoms were very mild, in the emergency department the symptoms are unchanged. Modifying factors: The symptoms are alleviated by nothing, the symptoms are aggravated by nothing. The patient has not experienced similar symptoms in the past. Historical: - Allergies: 02:15 No Known Allergies; sg - PMHx: 02:15 Diabetes - NIDDM; Hypertension; sg - PSHx: 02:15 GROIN SURGERY; sg - Immunization history:: Adult Immunizations up to date. - Social history:: Smoking status: Patient denies any tobacco usage or history of. ROS: 02:53 Constitutional: Negative for fever, chills, and weight loss, Eyes: Negative for injury, tw4 pain, redness, and discharge, Cardiovascular: Negative for chest pain, palpitations, and edema, Abdomen/GI: Negative for abdominal pain, nausea, vomiting, diarrhea, and constipation, Back: Negative for injury and pain, MS/Extremity: Negative for injury and deformity, Skin: Negative for injury, rash, and discoloration, Neuro: Negative for headache, weakness, numbness, tingling, and seizure. 02:53 Cardiovascular: Positive for chest pain, with cough, of the epigastric area. 02:53 Respiratory: Positive for cough, shortness of breath, on exertion. Negative for cough, dyspnea on exertion, hemoptysis, orthopnea, shortness of breath. Exam: 02:53 Constitutional: This is a well developed, well nourished patient who is awake, alert, tw4 and in no acute distress. Head/Face: Normocephalic, atraumatic. Chest/axilla: Normal chest wall appearance and motion. Nontender with no deformity. No lesions are appreciated. Cardiovascular: Regular rate and rhythm with a normal S1 and S2. No gallops, murmurs, or rubs. Normal PMI, no JVD. No pulse deficits. Respiratory: Lungs have equal breath sounds bilaterally, clear to auscultation and percussion. No rales, rhonchi or wheezes noted. No increased work of breathing, no retractions or nasal flaring. Abdomen/GI: Soft, non-tender, with normal bowel sounds. No distension or tympany. No guarding or rebound. No evidence of tenderness throughout. Back: No spinal tenderness. No costovertebral tenderness. Full range of motion. Skin: Warm, dry with normal turgor. Normal color with no rashes, no lesions, and no evidence of cellulitis. MS/ Extremity: Pulses equal, no cyanosis. Neurovascular intact. Full, normal range of motion. Neuro: Awake and alert, GCS 15, oriented to person, place, time, and situation. Cranial nerves II-XII grossly intact. Motor strength 5/5 in all extremities. Sensory grossly intact. Cerebellar exam normal. Normal gait. Vital Signs: 02:14 BP 195 / 98; Pulse 56; Resp 19; Temp 97.8; Pulse Ox 98% ; ea 03:30 BP 175 / 68; Pulse 60; Resp 18; Pulse Ox 98% on R/A; ea MDM: 01:52 Patient medically screened. tw4 03:11 Differential Diagnosis: Obstructed Airway Bronchitis Influenza Upper Respiratory tw4 Infection. Data reviewed: vital signs, nurses notes. Data reviewed: lab test result(s), CBC, electrolytes, Flu: negative EKG. Data interpreted: Pulse oximetry: Interpretation: normal. Test interpretation: by ED physician or midlevel provider: ECG, plain radiologic studies. Counseling: I had a detailed discussion with the patient and/or guardian regarding: the historical points, exam findings, and any diagnostic results supporting the discharge/admit diagnosis, lab results, the need for outpatient follow up. 03:34 Special discussion: I discussed with the patient/guardian in detail that at this point tw4 there is no indication for admission to the hospital. It is understood, however, that if the symptoms persist or worsen the patient needs to return immediately for re-evaluation. 01/19 01:37 Order name: COVID-19 tw4 01/19 01:38 Order name: Flu tw4 01/19 01:37 Order name: CXR XRAY tw4 07/12 01:38 Order name: Strep 01/19 03:12 Order name: EKG; Complete Time: 03:13 01/19 01:38 Order name: Droplet/Contact Precautions; Complete Time: 02:13 01/19 01:38 Order name: Labs collected and sent; Complete Time: 02:13 01/19 01:38 Order name: O2 Per Protocol; Complete Time: 02:13 01/19 03:20 Order name: EKG - Nurse/Tech; Complete Time: 03:27 ea EC:34 Rate is 74 beats/min. Rhythm is regular. Left axis deviation noted. CO interval is tw4 normal. QRS interval is normal. QT interval is normal. No Q waves. T waves are Normal. No ST changes noted. Clinical impression: 1st degree heart block and LVH. Interpreted by me. Reviewed by me. Administered Medications: No medications were administered Disposition: 01/20/20 03:35 Discharged to Home. Impression: Acute upper respiratory infection, unspecified. - Condition is Stable. - Discharge Instructions: Viral Respiratory Infection. - Prescriptions for Tessalon Perles 100 mg Oral Capsule - take 1 capsule by ORAL route every 8 hours As needed; 15 capsule. - Medication Reconciliation Form, Thank You Letter, Antibiotic Education, Prescription Opioid Use form. - Follow up: Private Physician; When: Upon discharge from the Emergency Department; Reason: Recheck today's complaints, Continuance of care, Re-evaluation by your physician. - Problem is new. - Symptoms have improved. Signatures: Dispatcher [employer] EDAgusto Winston RN RN sg Antunez, Elena, RN RN ea Wadley, Terrence, MD MD tw4 Corrections: (The following items were deleted from the chart) 03:45 03:35 01/20/2020 03:35 Discharged to Home. Impression: Acute upper respiratory ea infection, unspecified. Condition is Stable. Forms are Medication Reconciliation Form, Thank You Letter, Antibiotic Education, Prescription Opioid Use. Follow up: Private Physician; When: Upon discharge from the Emergency Department; Reason: Recheck today's complaints, Continuance of care, Re-evaluation by your physician. Problem is new. Symptoms have improved. tw4
--- NOTE | 2020-01-20 03:36 | ER ---
Nurse's Notes [facility] Name: Mainor Bell Age: 64 yrs Sex: Male : 1955 Arrival Date: 01/20/2020 Time: 01:32 Bed 3 Private MD: Diagnosis: Acute upper respiratory infection, unspecified Presentation: 01/19 01:40 Chief complaint: Chief complaint: Patient states: Zoey just had some chest tightness and sg a cough for a couple days now, no fever/chills reported, denies N/V/D. 01:40 Coronavirus screen: Proceed with normal triage. Ebola Screen: Patient negative for sg fever greater than or equal to 101.5 degrees Fahrenheit, and additional compatible Ebola Virus Disease symptoms Patient denies exposure to infectious person. Patient denies travel to an Ebola-affected area in the 21 days before illness onset. No symptoms or risks identified at this time. Initial Sepsis Screen: Does the patient meet any 2 criteria? No. Patient's initial sepsis screen is negative. Does the patient have a suspected source of infection? No. Patient's initial sepsis screen is negative. Risk Assessment: Do you want to hurt yourself or someone else? Patient reports no desire to harm self or others. Onset of symptoms was January 20, 2020. Care prior to arrival: None. Transition of care: patient was not received from another setting of care. 01:40 Method Of Arrival: Ambulatory sg 01:40 Acuity: JO 4 sg 02:14 Method Of Arrival: Ambulatory ea Triage Assessment: 02:16 General: Appears in no apparent distress. Behavior is calm, cooperative, appropriate ea for age. Pain: Denies pain. Neuro: Level of Consciousness is awake, alert, obeys commands, Oriented to person, place, time, situation. Cardiovascular: Patient's skin is warm and dry. Respiratory: Airway is patent Respiratory effort is even, unlabored, Respiratory pattern is regular, symmetrical. Derm: Skin is pink, warm \T\ dry. Historical: - Allergies: 02:15 No Known Allergies; sg - PMHx: 02:15 Diabetes - NIDDM; Hypertension; sg - PSHx: 02:15 GROIN SURGERY; sg - Immunization history:: Adult Immunizations up to date. - Social history:: Smoking status: Patient denies any tobacco usage or history of. Screenin:15 Abuse screen: Denies threats or abuse. Nutritional screening: No deficits noted. ea Tuberculosis screening: No symptoms or risk factors identified. Fall Risk None identified. Assessment: 02:00 General: Appears uncomfortable, Behavior is appropriate for age. Pain: Denies pain. ea Neuro: Level of Consciousness is awake, alert, obeys commands, Oriented to person, place, time. Respiratory: Airway is patent Respiratory effort is even, unlabored, Respiratory pattern is regular, symmetrical. Derm: Skin is pink, warm \T\ dry. 03:44 Reassessment: Patient and/or family updated on plan of care and expected duration. Pain ea level reassessed. Patient is alert, oriented x 3, equal unlabored respirations, skin warm/dry/pink. Discharge instruction given to patient, verbalized the understanding of instruction. Pt left ED ambulatory , tolerating well. Vital Signs: 02:14 BP 195 / 98; Pulse 56; Resp 19; Temp 97.8; Pulse Ox 98% ; ea 03:30 BP 175 / 68; Pulse 60; Resp 18; Pulse Ox 98% on R/A; ea ED Course: 01:32 Patient arrived in ED. ds1 01:40 Arm band placed on. Antipyretics given from triage as ordered by an ER provider. sg Antipyretics given from triage as ordered by an ER provider. 01:52 Brooks Sanz MD is Attending Physician. tw4 01:57 Madeline Gore, FADY is Primary Nurse. ea 02:14 Triage completed. sg 02:15 Patient has correct armband on for positive identification. Bed in low position. Call ea light in reach. Side rails up X2. Pulse ox on. NIBP on. 02:16 Patient maintains SpO2 saturation greater than 95% on room air. ea 03:02 CXR XRAY In Process Unspecified. EDMS 03:43 No provider procedures requiring assistance completed. Patient did not have IV access ea during this emergency room visit. Administered Medications: No medications were administered Outcome: 03:35 Discharge ordered by . tw4 03:44 Discharged to home ambulatory. ea 03:44 Condition: stable 03:44 Discharge instructions given to patient, Instructed on discharge instructions, follow up and referral plans. medication usage, Demonstrated understanding of instructions, follow-up care, medications, Prescriptions given X 1. 03:45 Patient left the ED. ea Addendum: 01/23/2020 13:56 Addendum: COVID-19 Result: Negative result given to RN to notify pt. Contacted by: domitila Kuo RN. Signatures: Dispatcher [employer] Teresa Chappell RN RN Agusto Walton RN RN sg Sanford, Demi ds1 Madeline Gore RN RN ea Wadley, Terrence, MD MD tw4 Corrections: (The following items were deleted from the chart) 01/19 02:14 02:13 Chief complaint: sg sg
[2020-01-20 04:03] VITALS: TEMP 97.8; O2SAT 98
[2020-01-20 04:04] VITALS: BP 175/68
--- NOTE | 2020-01-20 12:01 | RAD REPORT ---
EXAM DESCRIPTION: [facility] Single View01/20/2020 3:03 am CLINICAL HISTORY: Chest pain COMPARISON: 2014 FINDINGS: The lungs appear clear of acute infiltrate. The heart is normal size IMPRESSION: No acute abnormalities displayed
== END 2020-01-20 03:45 | disposition home or self-care (01) ==
LOC: ER 01:30
DX: J06.9 Acute upper respiratory infection, unspecified (principal); Z20.828 Contact with and (suspected) exposure to other viral communicable diseases; I10 Essential (primary) hypertension; E11.9 Type 2 diabetes mellitus without complications
CPT/HCPCS: 93005; 87070; 87081; 87804 ×2; 71045; 99284; U0001